=== PATIENT | male | born 1955 | race Caucasian/White ===

== ENCOUNTER 2018-01-03 08:15 | Day surgery (SDC) | payer BC ==
[2018-01-02 12:58] VITALS: BMI 33.5
[2018-01-03] MEDS ORDERED: PROPOFOL 0 ML ONE (09:58)
[2018-01-03] MEDS ORDERED: PROPOFOL 20 ML ONE (09:59)
[2018-01-03] MEDS ORDERED: Hydrocortisone 1% Cream 30 GM TUBE ONE (11:06)
--- NOTE | 2018-01-03 22:33 | ECHO ---
DATE OF SERVICE: 01/03/2019. PREPROCEDURE DIAGNOSIS:. Atrial fibrillation. The Anesthesiology department provided with sedation for the patient. Please see their notes for det ails. After adequate sedation was achieved, the transesophageal probe was inserted into the mouth and into the esophagus without issues. Multiplanar views were then obtained. Left ventricle is normal size with normal systolic function, EF estimated about 50-55%. No regional wall motion abnormalities. Left atrium is moderately dilated. Left atrial appendage is large and single lobe. No evidence of ma ss or thrombus. There is reduced velocities and spontaneous echo contrast seen. Right atrium is dilated. No mass or thrombus. Interatrial septum appears to be intact by color Doppler. Right ventricle is normal size with normal systolic function. The aortic valve is sclerotic but opens well, no stenosis or regurgitation. Aortic root is normal size with no aneurysmal dilatation or dissections. Mitral valve is structurally normal with mild to moderate mitral regurgitation, no stenosis. Tricuspid valve is structurally normal with moderate TR. Pulmonary valve is structurally normal, no significant stenosis or regurgitation. CONCLUSIONS: 1. Normal systolic function, EF 50-55%. 2. Biatrial enlargement. 3. No mass or thrombus seen in the left atrial appendage with reduced velocities. 4. Patient is in atrial fibrillation during study. 5. Mild to moderate MR. 6. Aortic valve sclerosis. 7. Moderate TR.
--- NOTE | 2018-01-03 22:40 | OP ---
DATE OF SERVICE: 01/03/2019. PREPROCEDURE DIAGNOSIS: Atrial fibrillation. PROCEDURE: Successful cardioversion. SUMMARY: The patient is a very pleasant 62-year-old white gentleman who comes to the outpatient area for plann ed TRAVIS cardioversion. Anesthesia department provided with sedation for the patient. Please see thei r notes for details. After adequate sedation was achieved and the transesophageal echo showed no evidence of thrombus. pad s were in place. Initially, 100 joules synchronized shock was delivered which was unsuccessful. A se cond shock at 200 joules synchronized was unsuccessful. A third synchronized shock at 360 joules suc cessfully converted him into normal sinus rhythm. He was bradycardic in the 30s to 40s initially, bu t has remained in the 30s since. Patient tolerated the procedure well. RECOMMENDATIONS: 1. Continue flecainide and Eliquis for stroke prophylaxis. 2. Follow up in the office in 1 month.
--- NOTE | 2018-01-05 17:53 | EKG ---
Test Reason : POST CARDIOVERSION Blood Pressure : / mmHG Vent. Rate : 065 BPM Atrial Rate : 065 BPM P-R Int : 186 ms QRS Dur : 098 ms QT Int : 426 ms P-R-T Axes : 079 055 083 degrees QTc Int : 443 ms Normal sinus rhythm Possible Left atrial enlargement Borderline ECG No previous ECGs available Confirmed by SUSI GRANDA (2) on 01/05/2018 5:52:42 PM Referred By: NETTA Confirmed By:SUSI GRANDA
== END 2018-01-03 12:00 | disposition home or self-care (01) ==
LOC: CCL 08:15
PROVIDERS: ATTEND Internal Medicine Cardiovascular Disease
PROC: 5A2204Z Restoration of Cardiac Rhythm, Single (ICD-10-PCS; principal; 2018-01-03)
PROC: B24BZZ4 Ultrasonography of Heart with Aorta, Transesophageal (ICD-10-PCS; principal; 2018-01-03)
DX: I48.91 Unspecified atrial fibrillation (principal); I35.8 Other nonrheumatic aortic valve disorders; Z79.01 Long term (current) use of anticoagulants; Z79.899 Other long term (current) drug therapy; Z88.0 Allergy status to penicillin
CPT/HCPCS: 92960; 93005; 93010; 93312; J2704

== ENCOUNTER 2019-01-29 12:20 | Day surgery (SDC) | payer MEDICARE, OTHER ==
[2019-01-28 11:10] VITALS: BMI 33.0
[2019-01-29 13:16] LABS: Mean Corpuscular HGB CONC 35.3 g/dL (32.0-36.0); Mean Corpuscular Hemoglobin 30.8 pg (27.0-31.0); Mean Corpuscular Volume 87.4 fL (78.0-98.0); Mean Platelet Volume 6.7 fL (7.4-10.4); Platelet Count 208 thou/uL (130-400); RBC Distribution Width 12.8 % (11.5-14.5); Red Blood Cell (RBC) Count 5.19 mill/uL (4.70-6.10); White Blood Cell (WBC) Count 6.3 thou/uL (4.8-10.8)
[2019-01-29] MEDS ORDERED: Midazolam HCl 2 mg/2 ml Vial ONE (13:25)
[2019-01-29] MEDS ORDERED: Fentanyl 100 MCG/2 ML VIAL ONE (13:25)
[2019-01-29 13:35] LABS: Anion Gap 11 mmol/L (10-20); BUN (Urea Nitrogen) 21 mg/dL (8.4-25.7); Calc. Creatinine Clearance 99 mL/min (70-130); Calcium 9.3 mg/dL (7.8-10.44); Carbon Dioxide 25 mmol/L (23-31); Chloride 107 mmol/L (98-107); Estimated GFR-MDRD 67; Glucose 99 mg/dL (80-115); Potassium 4.6 mmol/L (3.5-5.1); Sodium 138 mmol/L (136-145)
[2019-01-29] MEDS ORDERED: Bupivacaine/Epinephrine 0.25% 30 ML VIAL ONE (13:42)
[2019-01-29] MEDS ORDERED: Fentanyl 100 MCG/2 ML VIAL IV PRN (13:51)
[2019-01-29] MEDS ORDERED: Ropivacaine 0.2% 550 ML 550 ML NERVE BLCK SCH (13:51)
[2019-01-29] MEDS ORDERED: Clindamycin/D5W 900 mg/50 ml Premix Bag ONE (13:51)
[2019-01-29] MEDS ORDERED: Zolpidem Tartrate 5 MG TAB PO PRN (13:51)
[2019-01-29] MEDS ORDERED: traMADol HCl 50 MG TAB PO PRN ×2 (13:51)
[2019-01-29] MEDS ORDERED: HYDROcodone/Acetaminophen 10/325 mg Tablet PO PRN ×2 (13:51)
[2019-01-29] MEDS ORDERED: Promethazine HCl 25 MG/ML VIAL IM PRN (13:51)
[2019-01-29] MEDS ORDERED: Ondansetron PF 4 MG/2 ML Vial IVP PRN (13:51)
[2019-01-29] MEDS ORDERED: Ketorolac Tromethamine 30 MG/ML VIAL IVP SCH (18:00)
--- NOTE | 2019-01-29 18:51 | OP ---
DATE OF PROCEDURE: 01/29/2019 PREOPERATIVE DIAGNOSES: 1. Left shoulder pain secondary to tear in the anterior, superior, and posterior aspects of the labrum. 2. Left acromioclavicular arthritis. POSTOPERATIVE DIAGNOSES: 1. Left shoulder pain secondary to tear in the anterior, superior, and posterior aspects of the labrum. 2. Left acromioclavicular arthritis. 3. Loose cartilaginous bodies. PROCEDURES PERFORMED: 1. Arthroscopy of the left shoulder with anterior, superior, and posterior labral repairs. 2. Removal of loose cartilaginous bodies. 3. Excision of distal clavicle. ANESTHESIA: General. DESCRIPTION OF PROCEDURE: The patient was given preoperative IV antibiotics, taken to the operating room, placed in supine position. Satisfactory general anesthesia was performed. The patient was then placed in the right lateral decubitus position. All bony prominences were well padded. The left shoulder and upper extremity were placed in 15 pounds of traction. The shoulder and arm were sterilely prepped and draped. The shoulder was initially scoped through the posterior portal. Upon entering the shoulder joint, it was noted that there were loose cartilaginous bodies floating in the shoulder joint. Through an anterior portal, these were removed. There was a cartilaginous damage in the anterior and posterior aspects of the humeral head as well as anterior and posterior aspects of the glenoid. The anterior labrum was completely torn away. The anterosuperior and posterosuperior labrum were also torn as well as the posterior labrum. The labrum was repaired using three 2.9 [employer]rex PushLock anchors with #2 FiberWire, three were placed anterior-superior and three were placed posterior-superior in mid glenoid. This provided good stability for the labrum and associated ligaments. The subacromial space was then entered and bursectomy was performed. The supraspinatus tendon was intact. The acromioclavicular joint was identified and the distal clavicle was removed with a high-speed joanne. The instruments were removed. The portals were closed using 3-0 Rapide. Sterile dressing was applied. The patient was taken out of traction. He was awakened, extubated, and transferred to recovery room in stable condition. ESTIMATED BLOOD LOSS: Minimal. COMPLICATIONS: None. DISCHARGE MEDICATION: [place] 10 one every 4 to 6 hours as needed for pain, #40. FOLLOWUP: Follow up in office in one week. Job ID: [id number]
== END 2019-01-29 18:40 | disposition home or self-care (01) ==
LOC: SDC 12:20
PROVIDERS: ATTEND Orthopaedic Surgery
PROC: 0MM24ZZ Reattachment of Left Shoulder Bursa and Ligament, Percutaneous Endoscopic Approach (ICD-10-PCS; principal; 2019-01-29)
PROC: 0RCK4ZZ Extirpation of Matter from Left Shoulder Joint, Percutaneous Endoscopic Approach (ICD-10-PCS; 2019-01-29)
PROC: 0PBB4ZZ Excision of Left Clavicle, Percutaneous Endoscopic Approach (ICD-10-PCS; 2019-01-29)
PROC: 3E0T3BZ Introduction of Anesthetic Agent into Peripheral Nerves and Plexi, Percutaneous Approach (ICD-10-PCS; 2019-01-29)
DX: S43.432A Superior glenoid labrum lesion of left shoulder, initial encounter (principal); M19.012 Primary osteoarthritis, left shoulder; M24.012 Loose body in left shoulder; I48.91 Unspecified atrial fibrillation; E78.00 Pure hypercholesterolemia, unspecified; C91.40 Hairy cell leukemia not having achieved remission; G47.30 Sleep apnea, unspecified; G89.18 Other acute postprocedural pain; Z79.01 Long term (current) use of anticoagulants; Z79.82 Long term (current) use of aspirin; Z79.899 Other long term (current) drug therapy; Z88.0 Allergy status to penicillin; V43.92XA Unspecified car occupant injured in collision with other type car in traffic accident, initial encounter
CPT/HCPCS: 29807; 29824; 64416; 80048; 85027; A4306; J2250; J2795; J3010; J3490